=== PATIENT | female | born 1930 | race Asian ===

== ENCOUNTER 2017-11-22 13:56 | Emergency (ER) | payer OTHER ==
[~2017-11-22] VITALS: Ht 162.6 cm; Wt 68.0 kg
[2017-11-22 14:10] VITALS: Ht 162.6 cm; Wt 68.0 kg
[2017-11-22 16:47] VITALS: BP 145/60
== END 2017-11-22 16:47 | disposition home or self-care (01) ==
LOC: ED 13:56
DX: S09.90XA Unspecified injury of head, initial encounter (principal); I10 Essential (primary) hypertension; E11.9 Type 2 diabetes mellitus without complications; Z90.89 Acquired absence of other organs; Z90.49 Acquired absence of other specified parts of digestive tract; F03.90 Unspecified dementia, unspecified severity, without behavioral disturbance, psychotic disturbance, mood disturbance, and anxiety; Z88.2 Allergy status to sulfonamides; W18.30XA Fall on same level, unspecified, initial encounter; Y93.89 Activity, other specified; Y92.89 Other specified places as the place of occurrence of the external cause; Y99.8 Other external cause status
CPT/HCPCS: 82962

== ENCOUNTER 2018-05-19 18:56 | Emergency (ER) | payer OTHER ==
[~2018-05-19] VITALS: Ht 152.4 cm; Wt 63.5 kg
[2018-05-19 20:00] VITALS: Ht 152.4 cm; Wt 63.5 kg
[2018-05-19 22:24] VITALS: BP 96/44
== END 2018-05-19 22:24 | disposition home or self-care (01) ==
LOC: ED 18:56
DX: S52.92XA Unspecified fracture of left forearm, initial encounter for closed fracture (principal); I10 Essential (primary) hypertension; E11.9 Type 2 diabetes mellitus without complications; Z88.2 Allergy status to sulfonamides; W18.30XA Fall on same level, unspecified, initial encounter; Y93.89 Activity, other specified; Y92.89 Other specified places as the place of occurrence of the external cause; Y99.8 Other external cause status
CPT/HCPCS: J1885; Q0092